=== PATIENT | female | born 1995 ===

== ENCOUNTER 2017-02-07 05:24 | Emergency (ER) | payer OTHER ==
[2017-02-07] MEDS ORDERED: cefTRIAXone VIAL(*) 250 MG VIAL IM ONE (06:08)
[2017-02-07] MEDS ORDERED: Azithromycin TAB* 250 MG PO ONE (06:08)
[2017-02-07 08:33] VITALS: BP 117/85
--- NOTE | 2017-02-07 19:51 | ED ---
Chemo Estrada Billy, scribed for Saurav Banuelos MD on 02/07/17 at 0624 . Psychiatric Complaint - HPI Summary HPI Summary: Patient is a 21 year-old female coming to [facility] after an argument with her boyfriend earlier today. She states that she had concerns for infidelity and STD /STI, but then realized that she "overreacted." Denies any discharge or pain. She states that she feels safe to be discharged. Denies SI/HI. - History Of Current Complaint Chief Complaint: EDMentalHealth Time Seen by Provider: 02/07/17 05:47 Hx Obtained From: Patient Hx Last Menstrual Period: 07/20/16 Onset/Duration: Gradual Onset Timing: Constant Severity Initially: Moderate Severity Currently: Moderate Character: Anxious Aggravating Factor(s): Nothing Alleviating Factor(s): Nothing Associated Signs And Symptoms: Positive: Negative Related History: Negative For: Prior Psychiatric Issues Has Suicidal: Denies: Thoughts, With A Plan Has Homicidal: Denies: Thoughts, With A Plan - Allergies/Home Medications Allergies/Adverse Reactions: Allergies Allergy/AdvReac Type Severity Reaction Status Date / Time No Known Allergies Allergy Verified 08/14/16 17:44 PMH/Surg Hx/FS Hx/Imm Hx Endocrine/Hematology History: Denies: Hx Diabetes Respiratory History: Denies: Hx Asthma Infectious Disease History: No Infectious Disease History: Denies: History Other Infectious Disease, Traveled Outside the [place] in Last 30 Days - Family History Known Family History: Negative: Other - JOINT [place] - Social History Alcohol Use: Occasionally Substance Use Type: Reports: Marijuana Substance Use Comment - Amount & Last Used: today Smoking Status (MU): Never Smoked Tobacco Review of Systems Negative: Fever, Chills Negative: Erythema Negative: Sore Throat Negative: Chest Pain Negative: Shortness Of Breath, Cough Negative: Abdominal Pain, Vomiting, Nausea Negative: Myalgia, Edema Negative: Rash Positive: Other - See HPI All Other Systems Reviewed And Are Negative: Yes Physical Exam - Summary Physical Exam Summary: Constitutional: Well-developed, Well-nourished, Alert. (-) Distressed Skin: Warm, Dry HENT: Normocephalic; Atraumatic Eyes: Conjunctiva normal Neck: Musculoskeletal ROM normal neck. (-) JVD, (-) Stridor, (-) Tracheal deviation Cardio: Rhythm regular, rate normal, Heart sounds normal; Intact distal pulses; The pedal pulses are 2+ and symmetric. Radial pulses are 2+ and symmetric. (-) Murmur Pulmonary/Chest wall: Effort normal. (-) Respiratory distress, (-) Wheezes, (-) Rales Abd: Soft, (-) Tenderness, (-) Distension, (-) Guarding, (-) Rebound Musculoskeletal: (-) Edema Lymph: (-) Cervical adenopathy Neuro: Alert, Oriented x3 Psych: Patient is anxious and tearful. Triage Information Reviewed: Yes Vital Signs On Initial Exam: Initial Vitals Temp Pulse Resp BP Pulse Ox 98.8 F 101 20 132/83 100 02/07/17 05:35 02/07/17 05:35 02/07/17 05:35 02/07/17 05:35 02/07/17 05:35 Vital Signs Reviewed: Yes - [place] Coma Scale Coma Scale Total: 15 Diagnostics - Vital Signs Vital Signs Temp Pulse Resp BP Pulse Ox 02/07/17 05:37 98.8 F 101 20 132/83 100 02/07/17 05:35 98.8 F 101 20 132/83 100 - Laboratory Lab Statement: Any lab studies that have been ordered have been reviewed, and results considered in the medical decision making process. Course/Dx - Course Assessment/Plan: 21 year-old female brought to the ED by law enforcement for voluntary MHE. Patient states that she will follow up with a counselor at [facility]. - Differential Dx/Clinical Impression Provider Diagnosis: Adjustment reaction Discharge - Discharge Plan Condition: Stable Disposition: HOME Patient Education Materials: Mood Disorders (ED) Referrals: [facility] THAD Suggs [Medical Doctor] - The documentation as recorded by the Chemo mckoy Billy accurately reflects the service I personally performed and the decisions made by , Saurav Banuelos MD.
== END 2017-02-07 08:31 | disposition home or self-care (01) ==
LOC: ED 05:24
DX: F43.20 Adjustment disorder, unspecified (principal); F41.9 Anxiety disorder, unspecified
CPT/HCPCS: 96372; 99282